=== PATIENT | male | born 1965 | race Caucasian/White ===

== ENCOUNTER 2017-10-10 11:52 | Day surgery (SDC) | payer BC ==
[~2017-10-10 11:52] MED LIST: ATEN50 PO; CARV6.25 PO; DELTASONE20 MG PO; DILT120 PO; FURO20 PO; HYDCOR20 PO; HYDR1TAB94 PO; Hydrocortisone10 MG PO; IODPOTL; Inderal40 MG; LEVSOD150 PO; LISI5 PO; NICO2 PO; NICOTINE1 EAC1 TOP; Omeprazole20 M1 PO; POTA10T PO; PRED10 PO; PROP160ER PO; Pacerone100 MG PO; Tapazole10 MG PO; VITAMIN D2000 UNIT PO; XARELTO20 MG PO
[2017-10-10] MEDS ORDERED: LEVSOD125 PO (17:06)
[2017-10-10] MEDS ORDERED: PRED10 PO (17:08)
[2017-10-10] MEDS ORDERED: SOLU MEDRO IV (17:11)
== END 2017-10-10 17:50 | disposition home or self-care (01) ==
LOC: ATC 11:52
DX: E05.00 Thyrotoxicosis with diffuse goiter without thyrotoxic crisis or storm (principal); H05.20 Unspecified exophthalmos; E89.0 Postprocedural hypothyroidism; Z79.899 Other long term (current) drug therapy; Z87.891 Personal history of nicotine dependence
CPT/HCPCS: 96365; J2930

== ENCOUNTER 2017-10-16 11:36 | Day surgery (SDC) | payer BC ==
[~2017-10-16 11:36] MED LIST changes: +LEVSOD125 PO; +SOLU MEDRO IV
== END 2017-10-16 17:19 | disposition home or self-care (01) ==
LOC: ATC 11:36
DX: H05.20 Unspecified exophthalmos (principal); E05.00 Thyrotoxicosis with diffuse goiter without thyrotoxic crisis or storm; E89.0 Postprocedural hypothyroidism; Z79.899 Other long term (current) drug therapy
CPT/HCPCS: 96365; J2930

== ENCOUNTER 2017-10-23 00:17 | Day surgery (SDC) | payer BC | END 2017-10-23 17:10 | disposition home or self-care (01) | LOC: ATC 00:17 | DX: E05.00 Thyrotoxicosis with diffuse goiter without thyrotoxic crisis or storm (principal); H05.20 Unspecified exophthalmos; E89.0 Postprocedural hypothyroidism | CPT/HCPCS: 96365; J2930 ==

== ENCOUNTER 2017-10-30 00:45 | Day surgery (SDC) | payer BC | END 2017-10-30 16:50 | disposition home or self-care (01) | LOC: ATC 00:45 | DX: H05.20 Unspecified exophthalmos (principal); E05.00 Thyrotoxicosis with diffuse goiter without thyrotoxic crisis or storm; E89.0 Postprocedural hypothyroidism | CPT/HCPCS: 96365; J2930 ==

== ENCOUNTER 2017-11-06 00:20 | Day surgery (SDC) | payer BC | END 2017-11-06 17:08 | disposition home or self-care (01) | LOC: ATC 00:20 | DX: H05.20 Unspecified exophthalmos (principal); E05.00 Thyrotoxicosis with diffuse goiter without thyrotoxic crisis or storm; E89.0 Postprocedural hypothyroidism; Z79.899 Other long term (current) drug therapy | CPT/HCPCS: 96365; J2930 ==

== ENCOUNTER 2017-11-13 00:25 | Day surgery (SDC) | payer BC | END 2017-11-13 16:55 | disposition home or self-care (01) | LOC: ATC 00:25 | DX: E05.00 Thyrotoxicosis with diffuse goiter without thyrotoxic crisis or storm (principal); E89.0 Postprocedural hypothyroidism; H05.20 Unspecified exophthalmos; F41.9 Anxiety disorder, unspecified | CPT/HCPCS: 96365; J2930 ==

== ENCOUNTER 2017-11-20 00:20 | Day surgery (SDC) | payer BC | END 2017-11-20 22:43 | disposition home or self-care (01) | LOC: ATC 00:20 | DX: E05.00 Thyrotoxicosis with diffuse goiter without thyrotoxic crisis or storm (principal); H05.20 Unspecified exophthalmos; E89.0 Postprocedural hypothyroidism | CPT/HCPCS: J2930 ==

== ENCOUNTER 2017-11-27 00:47 | Day surgery (SDC) | payer BC | END 2017-11-27 17:16 | disposition home or self-care (01) | LOC: ATC 00:47 | DX: E05.00 Thyrotoxicosis with diffuse goiter without thyrotoxic crisis or storm (principal); H05.20 Unspecified exophthalmos; E89.0 Postprocedural hypothyroidism; F41.9 Anxiety disorder, unspecified | CPT/HCPCS: 96365; J1720; J2930 ==

== ENCOUNTER 2017-12-04 00:22 | Day surgery (SDC) | payer BC | END 2017-12-04 17:17 | disposition home or self-care (01) | LOC: ATC 00:22 | DX: H05.20 Unspecified exophthalmos (principal); E05.00 Thyrotoxicosis with diffuse goiter without thyrotoxic crisis or storm; E89.0 Postprocedural hypothyroidism | CPT/HCPCS: 96365; J2930 ==

== ENCOUNTER 2017-12-11 01:52 | Day surgery (SDC) | payer BC ==
[2017-12-11 17:44] LABS: Free Thyroxine 1.3 ng/dL (0.70-1.60)
[2017-12-11 17:46] LABS: Thyroid Stimulating Hormone 0.081 uIU/mL (0.360-4.800)
== END 2017-12-11 15:30 | disposition home or self-care (01) ==
LOC: ATC 01:52
PROVIDERS: Internal Medicine Endocrinology, Diabetes & Metabolism
DX: E05.00 Thyrotoxicosis with diffuse goiter without thyrotoxic crisis or storm (principal); H05.20 Unspecified exophthalmos; E89.0 Postprocedural hypothyroidism
CPT/HCPCS: 84439; 84443; 96374; J2930

== ENCOUNTER 2017-12-18 00:25 | Day surgery (SDC) | payer BC | END 2017-12-18 22:44 | disposition home or self-care (01) | LOC: ATC 00:25 | DX: H05.20 Unspecified exophthalmos (principal); E05.00 Thyrotoxicosis with diffuse goiter without thyrotoxic crisis or storm; E89.0 Postprocedural hypothyroidism | CPT/HCPCS: 96365; J2930 ==

== ENCOUNTER 2017-12-25 01:14 | Day surgery (SDC) | payer BC | END 2017-12-25 17:10 | disposition home or self-care (01) | LOC: ATC 01:14 | DX: H05.20 Unspecified exophthalmos (principal); E05.00 Thyrotoxicosis with diffuse goiter without thyrotoxic crisis or storm; E89.0 Postprocedural hypothyroidism | CPT/HCPCS: 96365; J2930 ==

== ENCOUNTER 2018-01-01 00:43 | Day surgery (SDC) | payer BC | END 2018-01-01 17:19 | disposition home or self-care (01) | LOC: ATC 00:43 | DX: H05.20 Unspecified exophthalmos (principal); E89.0 Postprocedural hypothyroidism; E05.00 Thyrotoxicosis with diffuse goiter without thyrotoxic crisis or storm | CPT/HCPCS: 96365; J2930 ==

== ENCOUNTER 2018-01-08 00:23 | Day surgery (SDC) | payer BC | END 2018-01-08 17:19 | disposition home or self-care (01) | LOC: ATC 00:23 | DX: H05.20 Unspecified exophthalmos (principal); E89.0 Postprocedural hypothyroidism; E05.00 Thyrotoxicosis with diffuse goiter without thyrotoxic crisis or storm | CPT/HCPCS: 96365; J2930 ==

== ENCOUNTER 2019-05-26 08:45 | Day surgery (SDC) | payer BC | END 2019-05-26 09:33 | disposition home or self-care (01) | LOC: ATC 08:45 | DX: H05.20 Unspecified exophthalmos (principal); E05.00 Thyrotoxicosis with diffuse goiter without thyrotoxic crisis or storm; E89.0 Postprocedural hypothyroidism; I48.91 Unspecified atrial fibrillation; F41.1 Generalized anxiety disorder; E66.9 Obesity, unspecified; Z68.39 Body mass index [BMI] 39.0-39.9, adult; Z79.899 Other long term (current) drug therapy; Z79.51 Long term (current) use of inhaled steroids; Z87.891 Personal history of nicotine dependence | CPT/HCPCS: 96365; J2930 ==

== ENCOUNTER 2019-06-02 00:20 | Day surgery (SDC) | payer BC | END 2019-06-02 14:26 | disposition home or self-care (01) | LOC: ATC 00:20 | DX: E05.00 Thyrotoxicosis with diffuse goiter without thyrotoxic crisis or storm (principal); E89.0 Postprocedural hypothyroidism; H05.20 Unspecified exophthalmos; Z79.899 Other long term (current) drug therapy; Z87.891 Personal history of nicotine dependence | CPT/HCPCS: 96365; J2930 ==

== ENCOUNTER 2019-06-09 00:18 | Day surgery (SDC) | payer BC ==
[2019-06-09] MEDS ORDERED: Solu-Medrol500 MG IV (13:43)
== END 2019-06-09 14:20 | disposition home or self-care (01) ==
LOC: ATC 00:18
DX: H05.20 Unspecified exophthalmos (principal); E05.00 Thyrotoxicosis with diffuse goiter without thyrotoxic crisis or storm; E89.0 Postprocedural hypothyroidism; J44.9 Chronic obstructive pulmonary disease, unspecified; F17.220 Nicotine dependence, chewing tobacco, uncomplicated; F41.1 Generalized anxiety disorder
CPT/HCPCS: 96365; J2930

== ENCOUNTER 2019-06-17 00:05 | Day surgery (SDC) | payer BC ==
[~2019-06-17 00:05] MED LIST changes: +Solu-Medrol500 MG IV
== END 2019-06-17 11:00 | disposition home or self-care (01) ==
LOC: ATC 00:05
DX: H05.20 Unspecified exophthalmos (principal); E05.00 Thyrotoxicosis with diffuse goiter without thyrotoxic crisis or storm; E89.0 Postprocedural hypothyroidism; J44.9 Chronic obstructive pulmonary disease, unspecified
CPT/HCPCS: 96365; J2930

== ENCOUNTER 2019-06-23 00:04 | Day surgery (SDC) | payer BC | END 2019-06-23 09:32 | disposition home or self-care (01) | LOC: ATC 00:04 | DX: E05.00 Thyrotoxicosis with diffuse goiter without thyrotoxic crisis or storm (principal); H05.20 Unspecified exophthalmos; E89.0 Postprocedural hypothyroidism; F41.9 Anxiety disorder, unspecified; F32.9 Major depressive disorder, single episode, unspecified; Z79.899 Other long term (current) drug therapy; Z87.891 Personal history of nicotine dependence | CPT/HCPCS: 96365; J2930 ==